=== PATIENT | male | born 1995 | race Caucasian/White ===

== ENCOUNTER 2020-08-05 16:30 | Emergency (ER) | payer MEDICAID ==
[2020-08-05 16:45] VITALS: BP 131/74; PULSE 83
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
--- NOTE | 2020-08-07 07:51 | CR ---
Chest: 2 views of the chest were obtained. Comparison: No prior chest imaging is available. Heart size and mediastinum are normal. Lungs are clear with no acute parenchymal change. Bony structures appear within normal limits for the patient's age. Impression: 1. Nothing acute is seen on 2 view chest x-ray. Diagnostic code #1
--- NOTE | 2020-08-09 09:22 | CT ---
Head CT Technique: Multiple axial sections through the brain were obtained. Intravenous contrast was not utilized. Reconstructed coronal and sagittal images were obtained. Comparison: No prior intracranial imaging is available. Findings: Ventricles along the basal cisterns and sulci over the convexities are within normal limits for the patient's age. No abnormal parenchymal densities are seen. No evidence of intracranial hemorrhage. No midline shift or mass- effect is appreciated. Small defect is noted within the right cerebellum most likely due to old surgery. Visualized mastoid sinuses and paranasal sinuses show nothing acute. No acute calvarial finding is appreciated. Impression: 1. Small defect within the right cerebellar calvarium likely postsurgical. Please correlate. 2. Nothing acute is appreciated on noncontrast head CT study. Diagnostic code #2 I agree with preliminary report from [facility], finalized on 08/05/20, 7:24 PM CASHIER SELF SERVICE G[employer]OLINE Interpreted on 08/07/2020 at 1209 by Son EASON
--- NOTE | 2020-08-09 09:24 | CT ---
CT facial bones Technique: Multiple axial sections through the maxillofacial structures were obtained. Reconstructed coronal and sagittal images were obtained. Comparison: No previous study is available. Findings: Rounded density is noted within the inferior right maxillary sinus measuring 1.9 cm which most likely represents a slightly lobulated retention cyst. Smaller abnormality is noted more anteriorly within the right maxillary sinus measuring 4 mm which most likely represents an additional small retention cyst. Other paranasal sinuses are clear. No air-fluid levels are appreciated. Insignificant nasal septal deviation is seen. No acute facial bone fracture is appreciated. Slightly sclerotic right mastoid sinus is seen. No definite acute finding is seen within the mastoid sinuses. Impression: 1. Slight change which is most likely incidental. 2. Nothing acute is appreciated. Diagnostic code #2 I agree with preliminary report from [facility], finalized on 08/05/20, 7:30 PM MIDDLE SCHOOL RESOURCE TEACHER Interpreted on 08/07/2020 at 1143AM by Son EASON
== END 2020-08-05 19:00 | disposition home or self-care (01) ==
LOC: JD.ED 16:30
DX: G44.89 Other headache syndrome (principal); R07.89 Other chest pain; F17.210 Nicotine dependence, cigarettes, uncomplicated; J45.909 Unspecified asthma, uncomplicated; Z20.828 Contact with and (suspected) exposure to other viral communicable diseases
CPT/HCPCS: 36415; 70450; 70486; 71046; 71046-26; 80053; 84484; 85025; 85379; 93005; 99285-25; U0002

== ENCOUNTER 2020-09-13 22:04 | Emergency (ER) | payer MEDICAID, OTHER ==
[2020-09-13 22:22] VITALS: BP 136/95; PULSE 106
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
== END 2020-09-13 23:15 | disposition home or self-care (01) ==
LOC: JD.ED 22:04
DX: R20.2 Paresthesia of skin (principal); G89.29 Other chronic pain; M79.622 Pain in left upper arm; Z72.0 Tobacco use; Z98.890 Other specified postprocedural states
CPT/HCPCS: 99283